=== PATIENT | male | born 1970 | race Caucasian/White ===

== ENCOUNTER → 2023-12-04 | Outpatient (CLI) | payer MEDICARE ==
--- NOTE | 2023-12-06 17:30 | US ---
EXAMINATION TYPE: US liver DATE OF EXAM: 12/04/2023 COMPARISON: NONE CLINICAL INDICATION: Male, 53 years old with history of R74.01 ELEVATION OF LEVELS OF LIVER TRANSAMIN ASE L; elevated LFTs TECHNIQUE: Multiple sonographic images of the right upper quadrant are obtained. FINDINGS: EXAM MEASUREMENTS: Liver Length: 16.4 cm Gallbladder Wall: 0.24 cm CBD: 0.36 cm Right Kidney: 10.8 x 4.6 x 5.0 cm CLINICAL ASSESSMENT MANAGER NOTES: Limited due to body habitus. Pt unable to roll on side Pancreas: Parts seen appear wnl Liver: Increased attenuation, decreased visualization of vessels suggestive of fatty infiltrate Gallbladder: One singular gallstone visualized Evidence for sonographic Ac's sign: No CBD: wnl Right Kidney: wnl The visualized portions of the pancreas are within normal limits. Liver demonstrates diffuse increase d attenuation and decreased visualization of the vessels. This appears limits evaluation for small ma sses. No gross evidence of mass. Single gallstone is identified. No surrounding fluid or wall thicken ing demonstrated. Negative sonographic Ac's sign. Common bile duct is within normal limits. Right kidney demonstrates no evidence of nephrolithiasis, hydronephrosis or solid mass. IMPRESSION: 1. Cholelithiasis without evidence for acute cholecystitis. 2. Hepatic steatosis.
== END | disposition home or self-care (01) ==
LOC: RADUSWWP 07:47
PROVIDERS: ATTEND Internal Medicine
DX: K76.0 Fatty (change of) liver, not elsewhere classified (principal); R79.89 Other specified abnormal findings of blood chemistry; R74.01 Elevation of levels of liver transaminase levels; K80.20 Calculus of gallbladder without cholecystitis without obstruction
CPT/HCPCS: 76705

== ENCOUNTER → 2024-01-22 | Outpatient (CLI) | payer MEDICARE ==
--- NOTE | 2024-01-22 15:07 | US ---
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 1.2 X 1.1 x 1.1 cm, mid , solid or almost completely solid, hypoechoic nodule, which is wider th an tall, with smooth margins, without echogenic foci. TR 4. Prior size: no prior 2. 0.8 X 0.8 x 1.0 cm, lower , mixed cystic and solid, isoechoic nodule, which is wider than tall, with ill-defined margins, without echogenic foci. TR 2. Prior size: no prior LEFT: # of nodules measured on left: 1 1. 6.7 X 4.3 x 7.1 cm, mid/lower , mixed cystic and solid, hypoechoic nodule, which is wider than t all, with ill-defined margins, without echogenic foci. TR 3. Prior size: no prior ISTHMUS: # of nodules measured in the isthmus: 0 Bilateral neck scanned, lymph node right neck = 2.1 x 0.7 x 1.6cm IMPRESSION: 1. Multinodular thyroid goiter. 2. Left thyroid lobe 7.1 cm TR 3 nodule. Fine-needle aspiration is recommended. 3. Right thyroid lobe 1.2 cm TR 4 nodule. Follow-up ultrasound in one year is recommended. 4. Nonspecific mildly enlarged right neck lymph node, may be reactive versus other etiologies.
== END | disposition home or self-care (01) ==
LOC: RADUSWWP 14:23
PROVIDERS: ATTEND Internal Medicine
DX: E04.2 Nontoxic multinodular goiter (principal)
CPT/HCPCS: 76536

== ENCOUNTER 2024-02-24 12:12 | Day surgery (SDC) | payer MEDICARE ==
[2024-02-24 13:11] VITALS: RESP 16; TEMP 97.9
[2024-02-24 14:13] VITALS: BP 119/71; PULSE 88
--- NOTE | 2024-02-24 15:31 | US ---
ULTRASOUND GUIDED FNA THYROID BIOPSY: CLINICAL HISTORY: Request for 1.2 cm right thyroid nodule and large 7 cm left thyroid nodule. FINDINGS: The procedure was explained to the patient. The risks, complications, benefits and alternatives were discussed and any questions were answered. Informed consent was obtained. Patient was placed supin e on the ultrasound table and prepped and draped in the usual sterile fashion. Utilizing a 25 gauge needle, five passes were made into the requested right thyroid nodule. The left thyroid nodule appear s to be almost entirely cystic. Approximate 60 cc of serous fluid was aspirated. Additionally 5 FNA s amples were obtained within the areas surrounding the cystic component. Patient was stable throughout the procedure. Pathology is pending. All elements of maximal barrier technique were utilized. IMPRESSION: 1. Successful ultrasound guided FNA thyroid biopsy.
== END 2024-02-24 14:15 | disposition home or self-care (01) ==
LOC: RADPROMAIN 12:12
PROVIDERS: ATTEND Internal Medicine
DX: E04.2 Nontoxic multinodular goiter (principal)
CPT/HCPCS: 10005; 10006; 36415; 88173; 88305

== ENCOUNTER 2024-03-18 07:17 | Day surgery (SDC) | payer MEDICARE ==
[~2024-03-18 07:17] MED LIST: LIDOCAINE 1% (10MG/ML) FOR IV START INTRADERMA PRN
[2024-03-18] MEDS: LACTATED RINGERS 1,000 ML IV SCH ×2 (08:19→14:27)
[2024-03-18] MEDS: IV FLUID CONTINUATION 1,000 ML IV ONE (08:19)
[2024-03-18] MEDS: HEPARIN SODIUM,PORCINE 5,000 UNIT/ML 1 ML VIAL SQ PRN (08:23)
[2024-03-18] MEDS: ACETAMINOPHEN TAB 500 MG TAB PO PRN (08:23)
[2024-03-18] MEDS: DEXAMETHASONE SOD PHOSPHATE 4 MG/ML 1 ML VIAL IV ONE (08:23)
[2024-03-18] MEDS: ONDANSETRON 4 MG/2 ML VIAL IVP ONE (08:23)
[2024-03-18] MEDS: IPRATROPIUM-ALBUTEROL 3 ML NEB INHALATION STA (08:32)
[2024-03-18] MEDS ORDERED: NEOSTIGMINE 1 MG/ML 10 ML VIAL ONE (09:10)
[2024-03-18] MEDS ORDERED: HYDROmorphone (PF) 1 MG/ML ONE (09:10)
[2024-03-18] MEDS ORDERED: SUCCINYLCHOLINE CHLORIDE 200 MG/10 ML VIAL IV ONE (09:10)
[2024-03-18] MEDS ORDERED: PROPOFOL 10 MG/ML 20 ML VIAL IV ONE (09:10)
[2024-03-18] MEDS ORDERED: MIDAZOLAM 2 MG/2 ML VIAL ONE (09:10)
[2024-03-18] MEDS ORDERED: PHENYLEPHRINE 10 MG/ML VIAL ONE (09:10)
[2024-03-18] MEDS ORDERED: fentaNYL (PF) 50 MCG/ML 2 ML AMP ONE (09:10)
[2024-03-18] MEDS ORDERED: DEXAMETHASONE SOD PHOSPHATE 10 MG/ML 1 ML VIAL ONE (09:10)
[2024-03-18] MEDS ORDERED: ROCURONIUM 10 MG/ML (5 ML VIAL) IV ONE (09:10)
[2024-03-18] MEDS ORDERED: GLYCOPYRROLATE 0.2 MG/ML 2 ML VIAL ONE (09:10)
[2024-03-18] MEDS: SODIUM CHLORIDE 0.9% 50 ML with ceFAZolin 2,000 MG IV ONE (09:10)
[2024-03-18] MEDS: LACTATED RINGERS 1,000 ML IV ONE ×2 (10:47→11:13)
[2024-03-18] MEDS: fentaNYL (PF) 50 MCG/ML 2 ML AMP IV PRN (11:57)
[2024-03-18] MEDS ORDERED: NALOXONE 0.4 MG/ML 1 ML VIAL IV PRN (12:05)
[2024-03-18] MEDS ORDERED: HYDROmorphone 0.5 MG/0.5 ML SYRINGE IVP PRN (12:05)
[2024-03-18] MEDS ORDERED: HYDROmorphone 1 MG/ML 1 ML SYRINGE IVP PRN (12:05)
[2024-03-18] MEDS ORDERED: ONDANSETRON 4 MG/2 ML VIAL IVP PRN (12:05)
--- NOTE | 2024-03-18 12:05 | P.OP ---
Date of Procedure: 03/18/24 Preoperative Diagnosis: Right thyroid papillary cancer 7 cm left thyroid cystic lesion Postoperative Diagnosis: Same Procedure(s) Performed: Total thyroidectomy Anesthesia: BOOM Surgeon: Kyle Alvarado Estimated Blood Loss (ml): 50 Pathology: other (Thyroid) Condition: stable Disposition: PACU Description of Procedure: The patient was placed on the operative table in the supine position. He received general endotracheal tube anesthesia. His neck was prepped and draped you sterile fashion. The patient was placed in the beachchair position with an extended neck. Standard Shaun incision was made approximately 2 cm above the sternal notch. Using electrocautery the platysma was divided. Then the strap muscles were divided in the midline. A We lateral traction placed the wound. The left thyroid was significantly large. The thyroid had a large 7 cm cyst. The left thyroid was dissected first. Using blunt dissection the thyroid was dissected off of the strap muscles. During mobilization of the thyroid the cyst ruptured. There was some hemorrhagic fluid in the cyst cavity. The superior thyroid vessels were dissected first. The superior pole of the thyroid was dissected with the pusher. I then the superior thyroidal artery and vein were dissected with a right angle and then t 2-0 silk tie was used to ligate the vessels. Using harmonic scissors the vessels were divided. Next the inferior thyroid vessels were dissected and then ligated with 2-0 silk suture. I then the harmonic scissors were used to divide the vessels. The gland was rotated medially. Care was taken to identify and preserve the recurrent laryngeal nerve. The inferior parathyroid gland was visualized. It was preserved. The superior parathyroid gland could not be seen. The thyroid gland was then dissected off the trachea using the harmonic scissors. And then the isthmus was divided with harmonic scissors. Next a pair of Ralph retractor used to elevate the right neck strap muscles. The right thyroid gland was palpated. There appeared to be a 1 cm nodule in the thyroid gland in the lower lobe. The thyroid gland was rotated medially. The superior thyroid vessels were ligated with 2-0 silk ties and then divided with harmonic scissors. The inferior thyroid vessels were ligated with 2-0 silk ties then divided with harmonic scissors. The middle thyroid vein was ligated with 3-0 silk ties and then like divided with the harmonic scissors. The gland was rotated medially. Care was taken identify and preserve the recurrent ventral nerve. The parathyroid glands were not visualized. The thyroid gland was then dissected off the trachea using meticulous dissection. The wound was inspected for hemostasis. T several small bleeding points were coagulated with electrocautery. PowderMix Surgicel was placed the wound. The wound was then irrigated no bleeding was seen. A #10 THOMAS drain was placed in the left thyroid bed and brought out through the middle of the incision. The strap muscles were then reapproximated using 3-0 Vicryl. Opened up this was closed using 3-0 Vicryl. Skin was closed with interrupted 3-0 Monocryl suture. Dermabond dressing applied. Patient tolerated well. He was sent to recovery in stable condition.
[2024-03-18] MEDS ORDERED: CALCIUM CARBONATE 500 MG CHEWABLE PO PRN (12:10)
[2024-03-18] MEDS: Pre Op ABX Message 1 EACH MISC MISCELLANE ONE (14:14)
[2024-03-18] MEDS: droPERidol 5 MG/2 ML VIAL IVP ONE (14:14)
--- NOTE | 2024-03-18 17:19 | P.CONS ---
History of Present Illness - Reason for Consult Consult date: 03/18/24 - History of Present Illness 54 year old M with PMH of HLD and biopsy proven papillary thyroid CA presents to [facility]. He underwent total thyroidectomy with Dr. Alvarado. [facility] consulted for medical management of this patient. 03/18 Patient currently reports 5-6/10 pain in this neck described as throbbing. He reports pain with swallowing as well. He reports no other symptoms. Ca is 9.5. BP 133/93, HR 93, T 97.5F, RR 16, 96% on RA. General: non toxic, no distress, appears at stated age Derm: warm, dry Neck: Neck dressing intact clean and dry. THOMAS drain with serousanguinous fluid Head: atraumatic, normocephalic, symmetric Eyes: EOMI, no lid lag, anicteric sclera Mouth: no lip lesion, mucus membranes moist Cardiovascular: S1S2 reg, no murmur Lungs: Clear to auscultation bilaterally, no rhonchi, no rales , no accessory muscle use Ext: no gross muscle atrophy, no edema, no contractures Neuro: no focal neuro deficits Psych: Alert, oriented, appropriate affect Based on my assessment of this patient, this patient meets a high complexity level of care. Dyslipidemia: Lipitor 20 mg PO QHS. Papillary thyroid CA status post thyroidectomy POD [address] Alvarado Ideally he should start thyroid supplementation within 5 days of surgery to be managed by his PCP Dr. Cartagena. CODE STATUS: FULL CODE. DVT Prophylaxis: Lovenox. GI Prophylaxis: Designated medical POA if patient is not able to make medical decisions for themselves: I have reviewed the following solutions sales consultant notes: Operative note. I have reviewed the results of the following tests: Ca. I have ordered the following tests: I have discussed the care of this patient with the following independent historian: ALBERT. I have independently interpreted the following test below: I have discussed the management of this patient with the following physician: Past Medical History Past Medical History: Cancer, Hyperlipidemia, Liver Disease, Sleep Apnea/CPAP/BIPAP, Thyroid Disorder Additional Past Medical History / Comment(s): neuropathy messi legs, weight loss of 70 pounds in 4 months from diet, fatty liver disease, thyroid ca- bx. 02/24/24; uses CPAP History of Any Multi-Drug Resistant Organisms: None Reported Past Surgical History: Orthopedic Surgery, Tonsillectomy Additional Past Surgical History / Comment(s): Bilateral hip replacement, thyroidectomy (03/18/24). Past Anesthesia/Blood Transfusion Reactions: No Reported Reaction Past Psychological History: No Psychological Hx Reported Smoking Status: Former smoker Past Alcohol Use History: None Reported Additional Past Alcohol Use History / Comment(s): smoked one ppd x 4 yrs Past Drug Use History: None Reported - Past Family History Mother Additional Family Medical History / Comment(s): Thyroid removed Medications and Allergies Home Medications Medication Instructions Recorded Confirmed Type Cholecalciferol (Vitamin D3) 125 mcg PO DAILY 02/18/24 03/18/24 History [Vitamin D3 (125 MCG = 5,000 IU)] [place]-3/Dha/Epa/Fish Oil [Fish Oil 1 tab PO DAILY 02/18/24 03/18/24 History 1,000 mg Softgel] Atorvastatin [Lipitor] 20 mg PO HS 03/10/24 03/18/24 History Allergies Allergy/AdvReac Type Severity Reaction Status Date / Time hydrocodone [From [place]] Allergy Swelling Verified 03/18/24 07:48 Physical Exam Vitals: Vital Signs Temp Pulse Resp BP Pulse Ox 03/18/24 14:15 97.5 F L 93 16 133/93 96 03/18/24 13:30 90 12 141/94 98 03/18/24 13:00 84 12 131/79 95 03/18/24 12:45 82 12 134/88 95 03/18/24 12:30 87 12 130/83 95 03/18/24 12:15 78 20 140/92 100 03/18/24 12:00 80 20 128/66 100 03/18/24 11:42 97.2 F L 87 20 120/62 100 03/18/24 08:07 97.4 F L 83 16 119/83 94 L Intake and Output 03/18/24 03/18/24 03/18/24 06:59 14:59 22:59 Intake Total 2650 Output Total 50 80 Balance 2600 -80 Intake: IV 2650 Output: Drainage 80 Neck 80 Estimated Blood Loss 50 Other: Weight 121.9 kg
[2024-03-18] MEDS: KETOROLAC 15 MG/ML 1 ML VIAL IVP SCH (17:23)
[2024-03-18] MEDS: HYDROcodone/APAP 5-325MG 1 EACH TAB PO PRN (20:45)
[2024-03-18] MEDS: ATORVASTATIN 20 MG TAB PO SCH (20:45)
[2024-03-18 22:27] VITALS: RESP 17
[2024-03-19 08:35] VITALS: BP 108/73; PULSE 82; TEMP 97.9
[2024-03-19] MEDS: ENOXAPARIN 40 MG/0.4 ML SYRINGE SQ SCH (08:47)
--- NOTE | 2024-03-19 09:28 | P.DS ---
Providers Date of admission: 03/18/2024 Expected date of discharge: 03/19/24 Attending physician: Kyle Alvarado Consults: 03/18/24 12:05 Consult Physician Routine Consulting Provider: Eddi Romero Consult Reason/Comments: Management Do you want consulting provider notified?: Yes Primary care physician: [facility] Course: This a 54-year-old male who underwent total thyroidectomy for right sided papillary carcinoma thyroid. Patient did well postop and. On postop day 1 he had some minimal drainage in his THOMAS drain. His voice was normal. His calcium levels have been above 9 his entire hospitalization. Procedures: Total thyroidectomy Patient Condition at Discharge: Good Plan - Discharge Summary Discharge Rx Participant: No New Discharge Prescriptions: New Ibuprofen [Motrin] 600 mg PO Q6HR PRN #40 tab PRN Reason: Pain Acetaminophen Tab [Tylenol] 650 mg PO Q6H #30 tab Docusate [Colace] 100 mg PO BID #20 capsule oxyCODONE HCL [OxyIR] 5 mg PO Q6H PRN 3 Days #10 tab PRN Reason: Pain No Action Cholecalciferol (Vitamin D3) [Vitamin D3 (125 MCG = 5,000 IU)] 125 mcg PO DAILY [place]-3/Dha/Epa/Fish Oil [Fish Oil 1,000 mg Softgel] 1 tab PO DAILY Atorvastatin [Lipitor] 20 mg PO HS Discharge Medication List Cholecalciferol (Vitamin D3) [Vitamin D3 (125 MCG = 5,000 IU)] 125 mcg PO DAILY 02/18/24 [History] [place]-3/Dha/Epa/Fish Oil [Fish Oil 1,000 mg Softgel] 1 tab PO DAILY 02/18/24 [History] Atorvastatin [Lipitor] 20 mg PO HS 03/10/24 [History] Acetaminophen Tab [Tylenol] 650 mg PO Q6H #30 tab 03/19/24 [Rx] Docusate [Colace] 100 mg PO BID #20 capsule 03/19/24 [Rx] Ibuprofen [Motrin] 600 mg PO Q6HR PRN #40 tab 03/19/24 [Rx] oxyCODONE HCL [OxyIR] 5 mg PO Q6H PRN 3 Days #10 tab 03/19/24 [Rx] Follow up Appointment(s)/Referral(s): Kyle Alvarado MD [STAFF PHYSICIAN] - 10/03/24 2:50 pm Discharge Disposition: HOME SELF-CARE
--- NOTE | 2024-03-19 10:42 | P.PN ---
Subjective Progress Note Date: 03/19/24 54 year old M with PMH of HLD and biopsy proven papillary thyroid CA presents to [facility] for elective surgery. He underwent total thyroidectomy with Dr. Alvarado. [facility] consulted for medical management of this patient. 03/18 Patient currently reports 5-6/10 pain in this neck described as throbbing. He reports pain with swallowing as well. He reports no other symptoms. Ca is 9.5. 03/19 Patient was seen and examined. THOMAS drain discontinued. Well controlled pain. Worried about starting thyroid supplementation. Ca is 9.1. BP 112/69, HR 91, T 98.6F, RR 17, 91% on RA. General: non toxic, no distress, appears at stated age Derm: warm, dry Neck: Neck dressing intact clean and dry. Head: atraumatic, normocephalic, symmetric Eyes: EOMI, no lid lag, anicteric sclera Cardiovascular: good distal perfusion in all 4 extremities Lungs: breathing comfortably , no accessory muscle use Ext: no gross muscle atrophy, no edema, no contractures Neuro: no focal neuro deficits Psych: Alert, oriented, appropriate affect Based on my assessment of this patient, this patient meets a moderate complexity level of care. Dyslipidemia: Lipitor 20 mg PO QHS. Papillary thyroid CA status post thyroidectomy POD [address] Alvarado Ideally he should start thyroid supplementation within 5 days of surgery to be managed by his PCP Dr. Cartagena. CODE STATUS: FULL CODE. DVT Prophylaxis: Lovenox. GI Prophylaxis: Designated medical POA if patient is not able to make medical decisions for themselves: I have reviewed the following health management consultant notes: Surgery. I have reviewed the results of the following tests: Ca. I have ordered the following tests: I have discussed the care of this patient with the following independent historian: I have independently interpreted the following test below: I have discussed the management of this patient with the following physician: Objective - Vital Signs Vital signs: Vital Signs Temp 98.6 F 03/19/24 01:07 Pulse 91 03/19/24 01:07 Resp 17 03/19/24 01:07 BP 112/69 03/19/24 01:07 Pulse Ox 95 03/19/24 01:07 FiO2 Intake & Output 03/18/24 03/19/24 03/19/24 18:59 06:59 18:59 Intake Total 2650 Output Total 130 45 Balance 2520 -45 Weight 121.9 kg Intake: IV 2650 Output: Drainage 80 45 Neck 80 45 Estimated Blood Loss 50 Other: Voiding Method Toilet # Voids 2 1
== END 2024-03-19 13:21 | disposition home or self-care (01) ==
LOC: OR 07:17 → 4SSUR 13:40 → OR 03-19 13:21
PROVIDERS: ATTEND Surgery
DX: C73 Malignant neoplasm of thyroid gland
CPT/HCPCS: 82310; 88307

== ENCOUNTER → 2024-07-06 | Outpatient (CLI) | payer MEDICARE ==
--- NOTE | 2024-07-06 07:58 | US ---
EXAMINATION TYPE: US liver DATE OF EXAM: 07/06/2024 COMPARISON: 12/04/2023 CLINICAL INDICATION: Male, 54 years old with history of K76.0 FATTY LIVER; History of fatty liver TECHNIQUE: Grayscale and color Doppler imaging of the right upper quadrant was performed. FINDINGS: EXAM MEASUREMENTS: Liver Length: 16.2 cm Gallbladder Wall: 0.3 cm CBD: 0.5 cm Right Kidney: 14.0 x 5.0 x 4.7 cm BINGO CHECKER NOTES:*Limitations due to overlying bowel gas Pancreas: Obscured by bowel gas Liver: best visualized intercostally Gallbladder: stone =1.5cm. adenomyomatosis Evidence for sonographic Ac's sign: no CBD: appears wnl Right Kidney: no evidence of hydronephrosis IMPRESSION: 1. No evidence for acute process. 2. Hepatic steatosis. 3. Adenomyomatosis. 4. Cholelithiasis. [facility], , 07/06/2024 7:56 AM
== END | disposition home or self-care (01) ==
LOC: RADUSWWP 07:16
PROVIDERS: ATTEND Family Medicine
DX: K76.0 Fatty (change of) liver, not elsewhere classified (principal); K80.20 Calculus of gallbladder without cholecystitis without obstruction
CPT/HCPCS: 76705

== ENCOUNTER 2024-08-14 17:24 | Emergency (ER) | payer MEDICARE ==
[2024-08-14 17:54] VITALS: RESP 18; TEMP 98
--- NOTE | 2024-08-14 18:26 | ED ---
Abdominal Pain HPI - General Chief Complaint: Abdominal Pain Stated Complaint: abd pain,constipation Time Seen by Provider: 08/14/24 17:40 Source: patient, RN notes reviewed Mode of arrival: ambulatory Limitations: no limitations - History of Present Illness Initial Comments: This is a 54-year-old male with history of thyroid cancer and gallstones compl aining of abdominal pain (09/29) x 4 days. Patient endorses associated vomiting, constipation and decreased appetite. Describes abdominal pain as "tight and bloating". Patient states he was advised to possible obstruction by another provider. Denies history of abdominal surgery. Denies fever, chills, chest pain, dyspnea, hematemesis, dizziness. MD Complaint: abdominal pain Onset/Timin -: days(s) Location: diffuse Radiation: none Migration to: no migration Severity scale (1-10): 4 Quality: other ("Tightness, bloating") Associated Symptoms: vomiting, constipation - Related Data Home Medications Medication Instructions Recorded Confirmed Cholecalciferol (Vitamin D3) 125 mcg PO DAILY 02/18/24 03/18/24 [Vitamin D3 (125 MCG = 5,000 IU)] [place]-3/Dha/Epa/Fish Oil [Fish Oil 1 tab PO DAILY 02/18/24 03/18/24 1,000 mg Softgel] Atorvastatin [Lipitor] 20 mg PO HS 03/10/24 03/18/24 Previous Rx's Medication Instructions Recorded Acetaminophen Tab [Tylenol] 650 mg PO Q6H #30 tab 03/19/24 Docusate [Colace] 100 mg PO BID #20 capsule 03/19/24 Ibuprofen [Motrin] 600 mg PO Q6HR PRN #40 tab 03/19/24 oxyCODONE HCL [OxyIR] 5 mg PO Q6H PRN 3 Days #10 tab 03/19/24 Docusate [Colace] 100 mg PO DAILY #30 capsule 08/14/24 Allergies Allergy/AdvReac Type Severity Reaction Status Date / Time hydrocodone [From [place]] Allergy Swelling Verified 08/14/24 17:54 Review of Systems ROS Statement: Those systems with pertinent positive or pertinent negative responses have been documented in the HPI. ROS Other: All systems not noted in ROS Statement are negative. Past Medical History Past Medical History: Cancer, Hyperlipidemia, Liver Disease, Sleep Apnea/CPAP/BIPAP, Thyroid Disorder Additional Past Medical History / Comment(s): neuropathy messi legs, weight loss of 70 pounds in 4 months from diet, fatty liver disease, thyroid ca- bx. 02/24/24; uses CPAP History of Any Multi-Drug Resistant Organisms: None Reported Past Surgical History: Orthopedic Surgery, Tonsillectomy Additional Past Surgical History / Comment(s): Bilateral hip replacement, thyroidectomy (03/18/24). Past Anesthesia/Blood Transfusion Reactions: No Reported Reaction Past Psychological History: No Psychological Hx Reported Smoking Status: Former smoker Past Alcohol Use History: None Reported Past Drug Use History: None Reported - Past Family History Mother Additional Family Medical History / Comment(s): Thyroid removed General Exam Limitations: no limitations General appearance: alert, in no apparent distress Head exam: Present: atraumatic, normocephalic, normal inspection Eye exam: Present: normal appearance, PERRL, EOMI. Absent: scleral icterus, conjunctival injection, periorbital swelling ENT exam: Present: normal exam, mucous membranes moist Neck exam: Present: normal inspection. Absent: tenderness, meningismus, lymphadenopathy Respiratory exam: Present: normal lung sounds bilaterally. Absent: respiratory distress, wheezes, rales, rhonchi, stridor Cardiovascular Exam: Present: regular rate, normal rhythm, normal heart sounds. Absent: systolic murmur, diastolic murmur, rubs, gallop, clicks GI/Abdominal exam: Present: soft, tenderness (Positive epigastric tenderness without guarding), hyperactive bowel sounds (Mildly hyperactive bowel sounds without high-pitched sounds). Absent: distended, guarding, rebound, rigid, mass, pulsatile mass, hernia Extremities exam: Present: normal inspection, full ROM, normal capillary refill. Absent: tenderness, pedal edema, joint swelling, calf tenderness Back exam: Present: normal inspection Neurological exam: Present: alert, oriented X3, CN II-XII intact Psychiatric exam: Present: normal affect, normal mood Skin exam: Present: warm, dry, intact, normal color. Absent: rash Course Vital Signs 08/14/24 08/14/24 17:49 23:11 Temperature 98.0 F Pulse Rate 87 82 Respiratory 18 18 Rate Blood Pressure 118/83 132/84 O2 Sat by Pulse 94 L 96 Oximetry Medical Decision Making - Medical Decision Making Was pt. sent in by a medical professional or institution (, PA, [employer], urgent care, hospital, or jail...) When possible be specific @ -No Did you speak to anyone other than the patient for history (EMS, parent, family, police, friend...)? What history was obtained from this source @ -No Did you review nursing and triage notes (agree or disagree)? Why? @ -I reviewed and agree with nursing and triage notes Were old charts reviewed (outside hosp., previous admission, EMS record, old EKG, old radiological studies, urgent care reports/EKG's, jail records)? Report findings @ -No old charts were reviewed Differential Diagnosis (chest pain, altered mental status, abdominal pain women, abdominal pain men, vaginal bleeding, weakness, fever, dyspnea, syncope, headache, dizziness, GI bleed, back pain, seizure, CVA, palpatations, mental health, musculoskeletal)? @ -Differential Abdominal Pain Men: Appendicitis, cholecystitis, diverticulosis, ischemic bowel, pancreatitis, hepatitis, UTI, gastroenteritis, AAA, incarcerated hernia, bowel obstruction, constipation, inflammatory bowel, hepatitis, peptic ulcer disease, splenic infarction, perforated viscus, testicular torsion, this is not meant to be an all-inclusive list EKG interpreted by me (3pts min.). @ -Not done X-rays interpreted by me (1pt min.). @ -KUB shows unremarkable abdomen with radiopaque foreign body noted in RLQ. CT interpreted by me (1pt min.). @ -None done U/S interpreted by me (1pt. min.). @ -None done What testing was considered but not performed or refused? (CT, X-rays, U/S, labs)? Why? @ -None What meds were considered but not given or refused? Why? @ -None Did you discuss the management of the patient with other professionals (professionals i.e. ERUM Wilson, [employer], lab, RT, psych nurse, social sciences department chair, criminal defense lawyer, teacher, safety security officer, dependency case manager)? Give summary @ -No Was smoking cessation discussed for >3mins.? @ -No Was critical care preformed (if so, how long)? @ -No Were there social determinants of health that impacted care today? How? (Homelessness, low income, unemployed, alcoholism, drug addiction, transport ation, low edu. Level, literacy, decrease access to med. care, assisted, rehab)? @ -No Was there de-escalation of care discussed even if they declined (Discuss DNR or withdrawal of care, Hospice)? DNR status @ -No What co-morbidities impacted this encounter? (DM, HTN, Smoking, COPD, CAD, Cancer, CVA, ARF, Chemo, Hep., AIDS, mental health diagnosis, sleep apnea, morbid obesity)? @ -None Was patient admitted / discharged? Hospital course, mention meds given and route, prescriptions, significant lab abnormalities, going to OR and other pertinent info. @ -Lab work is completely unremarkable. KUB shows unremarkable abdomen with radiopaque foreign body noted in RLQ. Patient provided IV normal saline and provided p.o. magnesium citrate. Enema performed with some relief noted by patient. Colace sent to patient's pharmacy. Advised follow-up with PCP/gastroenterology for ongoing constipation/GI symptoms. Discussed patient with Dr. Armijo. Undiagnosed new problem with uncertain prognosis? @ -No Drug Therapy requiring intensive monitoring for toxicity (Heparin, Nitro, In sulin, Cardizem)? @ -No Were any procedures done? @ -No Diagnosis/symptom? @ -Constipation Acute, or Chronic, or Acute on Chronic? @ -Acute Uncomplicated (without systemic symptoms) or Complicated (systemic symptoms)? @ -Uncomplicated Side effects of treatment? @ -No Exacerbation, Progression, or Severe Exacerbation? @ -No Poses a threat to life or bodily function? How? (Chest pain, USA, GA, pneumonia, PE, COPD, DKA, ARF, appy, cholecystitis, CVA, Diverticulitis, Homicidal, Suicidal, threat to staff... and all critical care pts) @ -No - Lab Data Result diagrams: 08/14/24 18:30 08/14/24 18:30 Lab Results 08/14/24 08/14/24 Range/Units 18:30 18:30 WBC 8.7 (3.8-10.6) k/uL RBC 5.48 (4.30-5.90) m/uL Hgb 14.5 (13.0-17.5) gm/dL Hct 44.6 (39.0-53.0) % MCV 81.5 (80.0-100.0) fL MCH 26.5 (25.0-35.0) pg MCHC 32.6 (31.0-37.0) g/dL RDW 14.1 (11.5-15.5) % Plt Count 273 (150-450) k/uL MPV 8.4 Neutrophils % 64 % Lymphocytes % 29 % Monocytes % 3 % Eosinophils % 2 % Basophils % 1 % Neutrophils # 5.6 (1.3-7.7) k/uL Lymphocytes # 2.5 (1.0-4.8) k/uL Monocytes # 0.3 (0-1.0) k/uL Eosinophils # 0.2 (0-0.7) k/uL Basophils # 0.0 (0-0.2) k/uL Sodium 139 (137-145) mmol/L Potassium 4.7 (3.5-5.1) mmol/L Chloride 101 (98-107) mmol/L Carbon Dioxide 27 (22-30) mmol/L Anion Gap 11 mmol/L BUN 15 (9-20) mg/dL Creatinine 0.95 (0.66-1.25) mg/dL Est GFR (CKD-EPI)AfAm >90 (>60 ml/min/1.73 sqM) Est GFR (CKD-EPI)NonAf >90 (>60 ml/min/1.73 sqM) Glucose 90 (74-99) mg/dL Calcium 9.9 (8.4-10.2) mg/dL Total Bilirubin 1.0 (0.2-1.3) mg/dL AST 24 (17-59) U/L ALT 21 (4-49) U/L Alkaline Phosphatase 93 (38-126) U/L Total Protein 7.4 (6.3-8.2) g/dL Albumin 4.4 (3.5-5.0) g/dL Lipase 238 (23-300) U/L Disposition Clinical Impression: Constipation Disposition: HOME SELF-CARE Condition: Good Instructions (If sedation given, give patient instructions): Constipation (ED) Additional Instructions: Follow-up with PCP/gastroenterology for ongoing management of recurrent constipation Prescriptions: Docusate [Colace] 100 mg PO DAILY #30 capsule Is patient prescribed a controlled substance at d/c from ED?: No Referrals: Arthur Ambrose MD [Primary Care Provider] - 1-2 days Yasemin George MD [STAFF PHYSICIAN] - 1-2 days Time of Disposition: 20:54
[2024-08-14 18:52] LABS: Basophils % (A) 1 %; Eosinophils # (A) 0.2 k/uL (0-0.7); Eosinophils % (A) 2 %; HCT 44.6 % (39.0-53.0); HGB 14.5 gm/dL (13.0-17.5); Lymphocytes # (A) 2.5 k/uL (1.0-4.8); Lymphocytes % (A) 29 %; MCH 26.5 pg (25.0-35.0); MCHC 32.6 g/dL (31.0-37.0); MCV 81.5 fL (80.0-100.0); Mean Platelet Volume 8.4; Monocytes # (A) 0.3 k/uL (0-1.0); Monocytes % (A) 3 %; Neutrophils # (A) 5.6 k/uL (1.3-7.7); Neutrophils % (A) 64 %; Platelet Count 273 k/uL (150-450); RBC 5.48 m/uL (4.30-5.90); RDW 14.1 % (11.5-15.5); WBC 8.7 k/uL (3.8-10.6)
[2024-08-14 18:56] LABS: ALT 21 U/L (4-49); AST 24 U/L (17-59); African American GFR (CKD) >90 (>60 ml/min/1.73 sqM); Albumin 4.4 g/dL (3.5-5.0); Alkaline Phosphatase 93 U/L (38-126); Anion Gap 11 mmol/L; Blood Urea Nitrogen 15 mg/dL (9-20); Calcium 9.9 mg/dL (8.4-10.2); Carbon Dioxide 27 mmol/L (22-30); Chloride 101 mmol/L (98-107); Glucose 90 mg/dL (74-99); Lipase 238 U/L (23-300); Non-African American GFR(CKD) >90 (>60 ml/min/1.73 sqM); Potassium 4.7 mmol/L (3.5-5.1); Sodium 139 mmol/L (137-145); Total Protein 7.4 g/dL (6.3-8.2)
[2024-08-14] MEDS: SODIUM CHLORIDE 0.9% 1,000 ML IV STA (19:05)
--- NOTE | 2024-08-14 19:20 | XR ---
EXAMINATION TYPE: XR KUB DATE OF EXAM: 08/14/2024 6:51 PM COMPARISON: None. CLINICAL INDICATION: Male, 54 years old with history of Constipation, TECHNIQUE: XR KUB view(s) obtained. FINDINGS: There is a normal colonic bowel gas pattern. Psoas margins are normal. No organomegaly is present. Radiopaque foreign bodies within the right mid and. Bilateral hip prostheses are present. Osseous str uctures appear intact. No suspicious differential air-fluid levels evident. No free air is evident. IMPRESSION: 1. Unremarkable abdomen. 2. Radiopaque foreign body right lower quadrant [facility] Irving Barger, , 08/14/2024 7:18 PM
[2024-08-14] MEDS: MAGNESIUM CITRATE 296 ML BOTTLE PO ONE (20:54)
[2024-08-14 23:12] VITALS: BP 132/84; PULSE 82
== END 2024-08-14 23:19 | disposition home or self-care (01) ==
LOC: EC 17:24
DX: K59.00 Constipation, unspecified (principal); Z87.891 Personal history of nicotine dependence; Z88.5 Allergy status to narcotic agent
CPT/HCPCS: 36415; 74018; 80053; 83690; 85025; 96360; 99284

== ENCOUNTER → 2024-11-04 | Outpatient (CLI) | payer MEDICARE ==
[2024-11-04 15:17] LABS: Basophils # (A) 0.05 X 10*3/uL (0.00-0.10); Basophils % (A) 0.8 %; Eosinophils # (A) 0.11 X 10*3/uL (0.04-0.35); Eosinophils % (A) 1.8 %; HCT 43.9 % (39.6-50.0); Lymphocytes # (A) 2.49 X 10*3/uL (0.90-5.00); Lymphocytes % (A) 41.3 %; MCH 26.7 pg (27.0-32.0); MCHC 31.9 g/dL (32.0-37.0); MCV 83.6 FL (80.0-97.0); Mean Platelet Volume 10.8 FL (9.5-12.2); Monocytes # (A) 0.34 X 10*3/uL (0.20-1.00); Monocytes % (A) 5.6 %; NRBC Per 100 WBC 0 X 10*3/uL (0.00-0.01); Neutrophils # (A) 3.02 X 10*3/uL (1.80-7.70); Neutrophils % (A) 50.2 %; Platelet Count 261 X 10*3/uL (140-440); RBC 5.25 X 10*6/uL (4.40-5.60); RDW 14.6 % (11.5-14.5); WBC 6.03 X 10*3/uL (4.50-10.00)
[2024-11-04 15:25] LABS: Appearance,Urine Clear (Clear); Bilirubin,Urine Negative (Negative); Blood,Urine Negative (Negative); Color,Urine Yellow (Yellow); Ketones,Urine Negative (Negative); Nitrite,Urine Negative (Negative); Specific Gravity,Urine 1.022 (1.001-1.030)
[2024-11-04 15:36] LABS: BUN/Creat Ratio 18.11 Ratio (12.00-20.00); Blood Urea Nitrogen 16.3 mg/dL (9.0-27.0); Calcium 9.4 mg/dL (8.7-10.3); Chloride 107 mmol/L (96-109); Glucose 99 mg/dL (70-110); Potassium 4.3 mmol/L (3.5-5.5); Sodium 142 mmol/L (135-145)
== END | disposition home or self-care (01) ==
LOC: LABWHC1 08:25
PROVIDERS: ATTEND Urology
DX: Z01.812 Encounter for preprocedural laboratory examination (principal); R97.20 Elevated prostate specific antigen [PSA]
CPT/HCPCS: 36415; 80048; 81003; 85025; 87086